=== PATIENT | female | born 1980 | race Caucasian/White ===

== ENCOUNTER 2017-08-22 01:05 | Emergency (ER) | payer OTHER ==
[~2017-08-22] VITALS: Ht 165.1 cm; Wt 85.4 kg
[2017-08-22 01:32] VITALS: Ht 165.1 cm; Wt 85.4 kg
[2017-08-22 07:01] VITALS: BP 129/90
== END 2017-08-22 07:01 | disposition home or self-care (01) ==
LOC: ED 01:05
DX: J06.9 Acute upper respiratory infection, unspecified (principal)